=== PATIENT | male | born 2000 | race Native Hawaiian/Other Pacific Islander ===

== ENCOUNTER 2023-07-02 10:32 | Emergency (ER) | payer BC, SELFPAY ==
[2023-07-02] VITALS (13 sets, daily range): BP systolic 116–130; BP diastolic 79–89; PULSE 63–81; RESP 18; TEMP 36.7; O2SAT 95–99; BMI 37.4
--- NOTE | 2023-07-02 11:12 | CRLHL7_ITS ---
For Patients: As a result of the Century Cures Act, medical imaging exams and procedure reports are released immediately into your electronic medical record. You may view this report before your referring provider. If you have questions, please contact your health care provider. INDICATION: Chest pain TECHNIQUE: Chest 2 views COMPARISON: None FINDINGS: Cardiovascular and mediastinum: Heart size and vasculature are normal in caliber and appearance. Lungs and pleural spaces: Lungs are clear. No sign of infiltrate or mass. No sign of pleural effusion. No pneumothorax. Bones and soft tissues: No significant findings. IMPRESSION: No acute findings. Dictated by Maximo Ferrera MD @ 07/02/2023 12:08:48 PM (Electronically Signed)
--- NOTE | 2023-07-02 11:13 | ED.GENADULT ---
HPI - General Adult General Time Seen by Provider: 11:13 Date Seen: 07/02/23 Chief complaint: Chest Pain Stated complaint: Myocarditis, chest pain Time Seen by Provider: 07/02/23 10:54 Source: patient Mode of arrival: ambulatory Limitations: no limitations History of Present Illness HPI narrative: Patient is a 22-year-old male who is attending [employer]. He was hospitalized for 2 days [place] about 3 weeks ago with pneumonia and myocarditis. He had an echo that showed slightly reduced ejection fraction in the 50% range, and he had an MRI scan of his heart that showed some mild anteroseptal edema. He was hospitalized for 2 days was given antibiotics for pneumonia and started on metoprolol extended release 25 mg. Since then he has had intermittent chest pain and intermittent nausea. He has had no fevers he has had no significant shortness of breath. No leg swelling or edema. He is back at school. He is from [place] around the [place] area. He has not any heart history in the past Related Data Home Medications Medication Instructions Recorded Confirmed metoprolol tartrate .ROUTE 07/02/23 Allergies Allergy/AdvReac Type Severity Reaction Status Date / Time No Known Drug Allergies Allergy Verified 07/02/23 10:52 Review of Systems Status of ROS: Reports: 6 or more systems reviewed and unremarkable except as noted in History and below PFSH [facility], [facility] Social History service: No Exam Narrative: Exam Narrative: Objective: Patient alert orient x3, vital signs look unremarkable, blood pressure 130/80 O2 sat 97% on room air, no fever. HEENT is unremarkable no facial asymmetry Neck is supple full range of motion Chest is clear no rales or wheezing Heart rhythm regular heart murmur Abdomen nontender Extremities are no edema , neurologic nonfocal Good peripheral perfusion noted Const: Vital Signs, click to edit/add: Vital Signs - 24 hr 07/02/23 10:54 07/02/23 11:12 07/02/23 11:55 Temperature 98.0 F Pulse Rate 81 Pulse Rate [Right Pulse Oximeter] 77 Respiratory Rate 18 Blood Pressure Blood Pressure [Ri ght Upper Arm] 130/80 Pulse Oximetry 97 98 97 Oxygen Delivery Me thod Room Air 07/02/23 12:00 07/02/23 12:02 07/02/23 12:15 Temperature Pulse Rate 71 73 78 Pulse Rate [Right Pulse Oximeter] Respiratory Rate Blood Pressure 116/84 Blood Pressure [Ri ght Upper Arm] Pulse Oximetry 98 97 98 Oxygen Delivery Me thod 07/02/23 12:30 07/02/23 12:32 07/02/23 12:33 Temperature Pulse Rate 67 71 70 Pulse Rate [Right Pulse Oximeter] Respiratory Rate Blood Pressure 128/84 Blood Pressure [Ri ght Upper Arm] Pulse Oximetry 98 98 99 Oxygen Delivery Me thod 07/02/23 12:35 07/02/23 12:45 07/02/23 13:00 Temperature Pulse Rate 73 65 63 Pulse Rate [Right Pulse Oximeter] Respiratory Rate Blood Pressure 118/89 Blood Pressure [Ri ght Upper Arm] Pulse Oximetry 95 98 95 Oxygen Delivery Me thod 07/02/23 13:02 Temperature Pulse Rate 70 Pulse Rate [Right Pulse Oximeter] Respiratory Rate Blood Pressure 127/79 Blood Pressure [Ri ght Upper Arm] Pulse Oximetry 97 Oxygen Delivery Me thod Course Vital Signs Vital signs: Initial Vital Signs Temperature 98.0 F 07/02/23 10:54 Temperature Source Temporal Artery Scan 07/02/23 10:54 Pulse Rate 77 07/02/23 10:54 Respiratory Rate 18 07/02/23 10:54 Blood Pressure 130/80 07/02/23 10:54 Blood Pressure Mean 96 07/02/23 10:54 Blood Pressure Position Sitting 07/02/23 10:54 Pulse Oximetry 97 07/02/23 10:54 Oxygen Delivery Method Room Air 07/02/23 10:54 Vital Signs Temperature 98.0 F 07/02/23 10:54 Pulse Rate 77 07/02/23 10:54 Respiratory Rate 18 07/02/23 10:54 Blood Pressure 130/80 07/02/23 10:54 Pulse Oximetry 97 07/02/23 10:54 Oxygen Delivery Method Room Air 07/02/23 10:54 Temperature 98.0 F 07/02/23 10:54 Pulse Rate 70 07/02/23 13:02 Respiratory Rate 18 07/02/23 10:54 Blood Pressure 127/79 07/02/23 13:02 Pulse Oximetry 97 07/02/23 13:02 Oxygen Delivery Method Room Air 07/02/23 10:54 Medical Decision Making MDM Narrative Medical decision making narrative: 22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 Since his discharge he has had intermittent nausea intermittent chest tightness. He has had a complete course of antibiotic. He no longer has fever. I think at this point be jackson to repeat his chest x-ray, EKG, troponin, given some IV fluid, will check with Cardiology regarding ongoing management. Lab Data Labs: Lab Results 07/02/23 Range/Units 11:31 WBC 7.70 (4.50-11.00) K/uL RBC 5.00 (4.30-5.90) m/uL Hgb 14.6 (13.5-17.5) gm/dL Hct 41.8 (37.0-53.0) % MCV 84 (80-100) fL MCH 29 (26-34) pg MCHC 35 (32-36) gm/dL RDW Coeff of [place] 12.1 (11.5-15.5) % Plt Count 244 (140-440) K/uL Neut % (Auto) 45.7 (42.0-72.0) % Lymph % (Auto) 39.2 (20-44) % Rhea % (Auto) 10.9 (0.0-11.0) % Eos % (Auto) 3.4 (0.0-7.0) % Baso % (Auto) 0.4 (0.0-3.0) % Neut # (Auto) 3.52 (1.7-7.0) K/uL Lymph # (Auto) 3.02 H (0.90-2.90) K/uL Rhea # (Auto) 0.80 (0.00-0.90) K/UL Eos # (Auto) 0.26 (0.00-0.50) K/uL Baso # (Auto) 0.03 (0.00-0.30) K/uL Abs Immat Gran (auto) 0.03 (0.00-0.30) K/uL Imm/Tot Granulo (auto) 0.4 % Sodium 138 (135-149) mmol/L Potassium 3.8 (3.6-5.1) mmol/L Chloride 103 (96-114) mmol/L Carbon Dioxide 25 (20-32) mmol/L Anion Gap 10 (7-15) mEq/L BUN 14 (5-24) mg/dL Creatinine 0.7 (0.5-1.5) mg/dL Estimated Creat Clear 195.71 Estimated GFR 135 ml/min Glucose 109 (60-115) mg/dL Calcium 9.8 (8.4-10.6) mg/dL Total Bilirubin 0.5 (0.1-1.5) mg/dL Direct Bilirubin 0.1 (0.0-0.5) mg/dL AST 44 H (12-35) U/L ALT 56 H (4-50) U/L Alkaline Phosphatase 59 (40-150) U/L Troponin I < 0.01 L (0.01-0.04) ng/mL C-Reactive Protein < 0.5 L (0.5-1.0) mg/dL NT-Pro-B Natriuret Pep 69 pg/mL Total Protein 7.9 (6.0-8.3) g/dL Albumin 4.4 (3.3-5.0) g/dL Discharge Plan Discharge Clinical Impression: Myocarditis, Pneumonia Patient Disposition: Home, Self-Care Condition: Stable Additional Instructions: Cardiology recommended stopping metoprolol at this point, would take Tylenol only, no aspirin Aleve or Advil. We will try and get her a sooner appointment with Cardiology. Engage in very light activity, no exertion, no working out. Return to the ED if problems concerns or any questions. Appointment with Dr. Ayala, Wire Transfer Clerk, Sunday, July 09, 2023 at 11:30am at [facility]. Activity Level: Light activity Discharge Diet: Regular Prescriptions: No Action metoprolol tartrate .ROUTE Stand Alone Forms: [employer] Info Instructions
[2023-07-02] MEDS: 0.9 % SODIUM CHLORIDE 500 ML 500 ML IV (11:20)
[2023-07-02 11:44] LABS: Basophils Absolute Auto 0.03 K/uL (0.00-0.30); Basophils Percent Auto 0.4 % (0.0-3.0); Eosinophils Absolute Auto 0.26 K/uL (0.00-0.50); Eosinophils Percent Auto 3.4 % (0.0-7.0); Hematocrit 41.8 % (37.0-53.0); Hemoglobin* 14.6 gm/dL (13.5-17.5); Immature Granulocytes Abs Auto 0.03 K/uL (0.00-0.30); Immature Granulocytes Pct Auto 0.4 %; Lymphocytes Absolute Auto 3.02 K/uL (0.90-2.90); Lymphocytes Percent Auto 39.2 % (20-44); Mean Corpuscular HGB Conc 35 gm/dL (32-36); Mean Corpuscular Hemoglobin 29 pg (26-34); Mean Corpuscular Volume 84 fL (80-100); Monocytes Percent Auto 10.9 % (0.0-11.0); Neutrophils Absolute Auto 3.52 K/uL (1.7-7.0); Neutrophils Percent Auto 45.7 % (42.0-72.0); Platelet Count* 244 K/uL (140-440); RDW Coefficient of Variation % 12.1 % (11.5-15.5)
[2023-07-02 12:06] LABS: Slide Review Reflex No
[2023-07-02 12:09] LABS: Albumin* 4.4 g/dL (3.3-5.0); Chloride* 103 mmol/L (96-114); Potassium* 3.8 mmol/L (3.6-5.1); Sodium* 138 mmol/L (135-149)
[2023-07-02 12:11] LABS: Creatinine* 0.7 mg/dL (0.5-1.5); Est. Creatinine Clearance* 195.71; Estimated Glomerular Filt Rate 135 ml/min
[2023-07-02 12:12] LABS: Alanine Aminotransferase* 56 U/L (4-50); Alkaline Phosphatase* 59 U/L (40-150); Anion Gap 10 mEq/L (7-15); Aspartate Amino Transferase* 44 U/L (12-35); Bilirubin Direct* 0.1 mg/dL (0.0-0.5); Bilirubin Total* 0.5 mg/dL (0.1-1.5); Blood Urea Nitrogen* 14 mg/dL (5-24); Carbon Dioxide* 25 mmol/L (20-32); Glucose* 109 mg/dL (60-115); Total Protein* 7.9 g/dL (6.0-8.3)
[2023-07-02 12:13] LABS: Calcium* 9.8 mg/dL (8.4-10.6)
[2023-07-02 12:16] LABS: C Reactive Protein* < 0.5 mg/dL (0.5-1.0)
[2023-07-02 12:34] LABS: NT Pro B Type NatriureticPept* 69 pg/mL; Troponin I* < 0.01 ng/mL (0.01-0.04)
== END 2023-07-02 13:21 | disposition home or self-care (01) ==
PROVIDERS: Emergency Provider Family Medicine; PCP Family Medicine
DX: I51.4 Myocarditis, unspecified (principal); J18.9 Pneumonia, unspecified organism
CPT/HCPCS: 36415; 71046; 80048; 80076; 83880; 84484; 85025; 86140; 93005; 94761; 96360; 99284; 99285; J7120